=== PATIENT | male | born 2000 | race Caucasian/White ===

== ENCOUNTER 2018-11-05 23:25 | Emergency (ER) | payer BC, OTHER ==
[2018-11-06] MEDS ORDERED: ONDANSETRON 4 MG/2 ML VIAL ONE (00:13)
[2018-11-06] MEDS ORDERED: NS 1,000 ML IV ONE ×2 (00:22→00:58)
[2018-11-06] MEDS ORDERED: ONDANSETRON 4 MG/2 ML VIAL IVP ONE (00:22)
[2018-11-06 00:54] LABS: PLATELET COUNT 255 10^3/uL (150-400)
--- NOTE | 2018-11-06 01:35 | EDPHY ---
H & P Stated Complaint: DIARR/VOMIT SINCE 5PM, BROWN, PHENERGAN SHOT AT [facility], VOMIT CONTINUES Time Seen by Provider: 11/06/18 00:35 HPI/ROS: HPI The patient presents with nausea, vomiting, diarrhea which began at about 5:00 p.m. Tonight and has been progressive. He went to an urgent care at approximately 7:30 p.m. Tonight and received a shot of Phenergan IM. He went home and had about 8-9 episodes of vomiting and began to feel dehydrated so comes into the emergency department. He has not had a fever abdominal pain. He does not have any URI type symptoms. Vomiting is nonbloody and nonbilious.. REVIEW OF SYSTEMS 10 systems were reviewed and negative with the exception of the elements mentioned in the history of present illness. PMHx: Healthy Soc Hx: Here with his mother PHYSICAL General Appearance: Alert, no distress Eyes: Pupils equal and round no pallor or injection ENT, Mouth: Mucous membranes moist Respiratory: There are no retractions, lungs are clear to auscultation Cardiovascular: Regular rate and rhythm Gastrointestinal: Abdomen is soft and non-tender, no masses, bowel sounds normal Neurological: A&O, moves all extremities Skin: Warm and dry, no rashes Musculoskeletal: Neck is supple non tender Extremities: symmetrical, full range of motion Psychiatric: Patient is oriented X 3, there is no agitation Source: Patient Exam Limitations: No limitations - Personal History Current Tetanus/Diphtheria Vaccine: Yes - Medical/Surgical History Hx Asthma: No Hx Chronic Respiratory Disease: No Hx Diabetes: No Hx Cardiac Disease: No Hx Renal Disease: No Hx Cirrhosis: No Hx Alcoholism: No Hx HIV/AIDS: No Hx Splenectomy or Spleen Trauma: No Other PMH: WISDOM TEETH - Social History Smoking Status: Never smoked Constitutional: Initial Vital Signs Temperature (C) 36.8 C 11/05/18 23:28 Heart Rate 102 H 11/05/18 23:28 Respiratory Rate 20 11/05/18 23:28 Blood Pressure 158/83 H 11/05/18 23:28 O2 Sat (%) 93 11/05/18 23:28 O2 Delivery Mode Room Air Allergies/Adverse Reactions: cefuroxime [From Ceftin] Allergy (Verified 11/05/18 23:28) tree nut Allergy (Verified 11/05/18 23:28) Home Medications: Medication Instructions Recorded Allergy Meds 11/05/18 Medical Decision Making Differential Diagnosis: This is a 18-year-old healthy male with nausea, vomiting, diarrhea, symptoms not controlled with Phenergan injection he received at urgent care several hours ago. Here, he appears dehydrated, vital signs are normal, abdominal exam is benign. In the emergency department, patient is given IV fluids and Zofran. Labs are checked and demonstrate no leukocytosis but left shift. Patient was eventually able to tolerate fluids by mouth, felt better, was discharged home with his mother. Differential diagnosis includes viral gastroenteritis, toxin mediated enterocolitis, less likely appendicitis. - Data Points Laboratory Results: Laboratory Results 11/06/18 00:25 11/06/18 00:32 Medications Given: Discontinued Medications Sodium Chloride (Ns) 1,000 mls @ 0 mls/hr IV ONCE ONE; Wide Open PRN Reason: Protocol Stop: 11/06/18 00:23 Last Admin: 11/06/18 00:23 Dose: 1,000 mls Sodium Chloride (Ns) 1,000 mls @ 0 mls/hr IV EDNOW ONE; Wide Open PRN Reason: Protocol Stop: 11/06/18 00:59 Last Admin: 11/06/18 01:01 Dose: 1,000 mls Ondansetron HCl (Zofran) 4 mg IVP EDNOW ONE Stop: 11/06/18 00:23 Last Admin: 11/06/18 00:23 Dose: 4 mg Ondansetron HCl (Zofran Odt 4 Mg Prepack#2) 1 btl TAKEHOME EDNOW ONE Stop: 11/06/18 02:00 Last Admin: 11/06/18 02:08 Dose: 1 btl Departure - Departure Disposition: Home, Routine, Self-Care Clinical Impression: Nausea vomiting and diarrhea Condition: Good Instructions: Ondansetron (By mouth), Dehydration (ED), Acute Nausea and Vomiting (ED) Additional Instructions: You can take the Phenergan that you were given at urgent care or this Zofran that I am giving you as needed for nausea and vomiting. It is okay to take these 2 medications at the same time. As you should make sure that when your awake, your drinking small amounts of clear liquids until your feeling better. Then you can advance her diet to a bland foods. Please return to the ER if your worse in any way. Referrals: NONE *PRIMARY CARE P,. [Primary Care Provider] - As per Instructions
[2018-11-06] MEDS ORDERED: ONDANSETRON 4MG PREPACK#2 BTL TAKEHOME ONE (01:59)
[2018-11-06 02:10] VITALS: BP 124/78
== END 2018-11-06 02:10 | disposition home or self-care (01) ==
DX: R11.2 Nausea with vomiting, unspecified (principal); R19.7 Diarrhea, unspecified; E86.9 Volume depletion, unspecified
CPT/HCPCS: 96374; J2405